=== PATIENT | male | born 1955 | race Caucasian/White ===

== ENCOUNTER 2020-06-26 19:58 | Emergency (ER) | payer MEDICARE, OTHER ==
[~2020-06-26] VITALS: Ht 175.3 cm; Wt 80.2 kg
--- NOTE | 2020-06-26 20:08 | NUR ---
PT EDUCATED ON CLEAN CATCH AND PROVIDED URINE CUP
[2020-06-26 20:22] LABS: MICROSCOPIC NOT IND
--- NOTE | 2020-06-26 20:51 | NUR ---
pt in gown in [facility]. pt attached to vs monitor. piv access established and labs drawn at this time. pt questions answered. call light is within reach at this time.
[2020-06-26] MEDS ORDERED: SODIUM CHLORIDE FLUSH 10ML SYR IVF ONE (21:00)
[2020-06-26 21:26] LABS: BASOPHILS # (AUTO) 0.02 x10^3/uL (0-0.1); BASOPHILS % (AUTO) 0 % (0-1); EOSINOPHILS # (AUTO) 0.19 x10^3/uL (0-0.4); EOSINOPHILS % (AUTO) 2 % (1-7); LYMPHOCYTES # (AUTO) 1.29 x10^3/uL (1-3.4); LYMPHOCYTES % (AUTO) 14 % (22-44); MD NO; MEAN CORPUSCULAR HEMOGLOBIN 32.4 pg (27.5-34.5); MEAN CORPUSCULAR HGB CONC 33.9 g/dL (33.2-36.2); MEAN PLATELET VOLUME 9.4 fL (7.4-10.4); MONOCYTES # (AUTO) 0.87 x10^3/uL (0.2-0.8); MONOCYTES % (AUTO) 9 % (2-9); NEUTROPHILS % (AUTO) 75 % (42-75); PLATELET COUNT 164 x10^3/uL (130-400); RED BLOOD COUNT 4.72 x10^6/uL (4.38-5.82); RED CELL DISTRIBUTION WIDTH 13.8 % (9.4-14.8)
[2020-06-26 21:37] LABS: ALBUMIN 3.7 g/dL (3.4-5.0); ANION GAP 5 mmol/L (5-15); CALCIUM 9.3 mg/dL (8.5-10.1); CHLORIDE 106 mmol/L (98-107)
[2020-06-26 21:41] LABS: ALANINE AMINOTRANSFERASE 20 U/L (12-78); ALKALINE PHOSPHATASE 60 U/L (45-117); BILIRUBIN,TOTAL 1.5 mg/dL (0.2-1.0); CREATININE 1.08 mg/dL (0.7-1.3); TOTAL PROTEIN 7.6 g/dL (6.4-8.2)
--- NOTE | 2020-06-26 22:04 | NUR ---
PT BACK FROM CT AT THIS TIME. PT RESTING COMFORTABLY IN [facility] WITH CALL LIGHT WITHIN REACH. VSS AND UPDATED IN EMR.
[2020-06-26 22:05] VITALS: BP 119/67
[2020-06-26] MEDS ORDERED: metroNIDAZOLE 500 MG TABLET ONE (22:29)
[2020-06-26] MEDS ORDERED: AMOXICILLIN/CLAV 875-125MG TABLET ONE (22:29)
[2020-06-26] MEDS ORDERED: AMOXICILLIN/CLAV 875-125MG TABLET PO ONE (22:30)
[2020-06-26] MEDS ORDERED: metroNIDAZOLE 500 MG TABLET PO ONE (22:30)
--- NOTE | 2020-06-26 22:33 | NUR ---
PT MEDICATED PER MAR AT THIS TIME.
[2020-06-26] MEDS ORDERED: OMNIPAQUE 350 MG/ML, 100ML BOTTLE ONE (23:05)
--- NOTE | 2020-06-26 23:06 | NUR ---
PT D/C WITH D/C SUMMARY AND SCRIPTS. ALL QUESTIONS ANSWERED. PT AMBULATES TO REGISTRATION DESK WITH STEADY GAIT FOR D/C HOME. PT DENIES ANY OTHER NEEDS PERTAINING TO THIS VISIT. PT PIV D/C WITH TIP INTACT.
== END 2020-06-26 23:09 | disposition home or self-care (01) ==
LOC: ED 22:30
DX: A09 Infectious gastroenteritis and colitis, unspecified (principal); I10 Essential (primary) hypertension
CPT/HCPCS: 36415; 74177; 80053; 81003; 83690; 85025; 99285; Q9967